=== PATIENT | female | born 2000 | race Caucasian/White ===

== ENCOUNTER → 2020-01-13 15:12 | Outpatient (BNVA) | payer SELFPAY | PROVIDERS: Family Provider Electrodiagnostic Medicine; PCP Nurse Practitioner Family; Visit Provider Nurse Practitioner | DX: Z71.1 Person with feared health complaint in whom no diagnosis is made (principal); N89.8 Other specified noninflammatory disorders of vagina | CPT/HCPCS: 87491; 87591; 87661 ==

== ENCOUNTER 2021-05-09 12:38 | Emergency (ER) | payer MEDICAID, SELFPAY ==
--- NOTE | 2021-05-09 12:52 | US_ITS ---
WS: [id number] Obstetrical ultrasound, limited. HISTORY: Cramping. Comparison: None. Single intrauterine gestation is identified with heart rate 1 53 bpm. Cervix is closed at 4.2 cm. Kj centa is developing posterior. Normal amount of amniotic fluid. Biometry consistent with a gestation of 13 weeks and 6 days. US/US OB limited [id number] IMPRESSION: 1. Normal cardiac activity. 2. Normal amniotic fluid.
[2021-05-09 13:02] VITALS: BP 121/75; PULSE 79; RESP 18; TEMP 36.9; O2SAT 97; BMI 28.1
[2021-05-09 13:31] LABS: Add Urine Microscopic? NO; Charge for UA Resulting for Rev
[2021-05-09 13:37] LABS: Bilirubin Urine Neg (Negative); Blood Urine Neg (Negative); Glucose Urine UA Norm (Normal); Ketones Urine 1+ (Negative); Leukocyte Esterase Urine Negative (Negative); Nitrate Urine Negative (Negative); Protein Urine Neg (Negative); Specific Gravity, Urine 1.015 (1.005-1.030); Urine Appearance Clear (CLEAR); Urine Color Yellow (Yellow); Urobilinogen Urine Norm (Negative); pH Urine 7 (5-7)
--- NOTE | 2021-05-09 14:10 | W.ED.ABDPA2 ---
HPI - Abdominal Pain General: Chief Complaint: Abdominal Pain Stated Complaint: cramping, 12 weeks , H/A Time Seen by Provider: 05/09/21 14:03 History of Present Illness: HPI narrative: 20-year-old female presents emergency room she is approximately 12 weeks gestation. Overnight she had some generalized cramping abdominal pain nausea and vomiting she denies any vaginal discharge or bleeding no dysuria urgency or frequency. She usually sees an calender inspector in [place]. She has prior of prior confirmed intrauterine . She is not been taking anything for nausea. MD elicited complaint: other (pelvic cramping.) Onset (ago): hour(s) Pain Consistency: intermittent Location: Pelvis Severity: moderate Quality: cramping Radiation: none Exacerbating factors: nothing Relieving factors: nothing Associated Symptoms: Reports GI cramping; Denies anorexia, belching, bloating, change in bowel habits, change in stool character, chills, coffee ground emesis, constipation, diarrhea, dyspepsia, dysuria, excessive flatus, fever(s), heartburn, hematochezia, hematuria, hematemesis, fecal incontinence, loose stools, melena, nausea, poor appetite and vomiting Review of Systems Const: Denies: fever(s) or chills ENMT: Denies: throat pain, ear or mastoid pain, nasal discharge or nasal congestion Card: Denies: chest pain, edema, dyspnea on exertion or orthopnea Resp: Denies: dyspnea, productive cough or non-productive cough GI: Reports: GI cramping; Denies: nausea, vomiting, hematemesis, coffee ground emesis, heartburn, diarrhea, constipation, bloating, belching, excessive flatus, fecal incontinence, change in bowel habits, change in stool character, hematochezia or melena : Denies: dysuria or hematuria Skin/Breast: Denies: rash or pruritus PFSH ED PFSH: Social History Smoking and tobacco status: former smoker Additional social history: - Tobacco use: Alcohol use: Drug use: Physical Exam Const: COMMON NORMALS: no acute distress GENERAL APPEARANCE: cooperative and comfortable ORIENTATION/CONSCIOUSNESS: Yes awake, Yes oriented to person, Yes oriented to place and Yes oriented to time HENMT: COMMON NORMALS: normocephalic, atraumatic, hearing grossly normal bilaterally and external ears normal HEAD & SCALP: normocephalic and atraumatic EXTERNAL EAR: Yes external ears normal Neck/C-Spine: COMMON NORMALS: no JVD Resp: COMMON NORMALS: normal respiratory effort, No retractions, No use of accessory muscles and clear to auscultation bilaterally AUSCULTATION: clear to auscultation bilaterally Cardio: COMMON NORMALS: no JVD, regular rate, regular rhythm and No murmurs present (Cardio) RATE: regular rate RHYTHM: regular rhythm GI: COMMON NORMALS: Soft to palpation and No hepatosplenomegaly present AUSCULTATION: Yes normoactive bowel sounds PALPATION: Yes Soft to palpation, No Tenderness to palpation present (GI), No Guarding due to palpation present (GI) and Yes No hepatosplenomegaly present Extremity: COMMON NORMALS: normal to inspection, capillary refill normal, no clubbing, cyanosis or edema, no calf tenderness and no pedal edema Neuro: SENSORIUM/ORIENTATION: Yes oriented to person, Yes oriented to place and Yes oriented to time Skin: COMMON NORMALS: no rashes or lesions noted GENERAL SKIN EXAM: no rashes or lesions noted Course Vital Signs: Vital signs: Vital Signs Temperature 98.4 F 05/09/21 13:02 Pulse Rate 79 05/09/21 13:02 Respiratory Rate 18 05/09/21 13:02 Blood Pressure 121/75 05/09/21 13:02 Pulse Oximetry 97 05/09/21 13:02 MDM - Abdominal Pain MDM Narrative: Medical decision making narrative: Her pelvic ultrasound showed intrauterine with good cardiac activity. She is feeling better after the fluids. We will start her on some promethazine to use as needed. Encourage her to follow-up with her primary care doctor please make contact with him within the week advance diet slowly she still feeling a little bit nauseous we will go ahead and give her a note for work for couple of days as well. Return if she has further problems. Lab Data: Labs: Lab Results 05/09/21 05/09/21 05/09/21 Range/Units 13:26 14:30 14:30 WBC 8.6 (4.5-13.0) 10^3/ uL RBC 3.86 L (4.1-5.3) 10^6/u L Hgb 12.5 (11.5-15.3) g/dL Hct 33.6 L (37.0-47.0) % MCV 87.0 (81-99) fL MCH 32.4 (28.0-34.0) pg MCHC 37.2 H (30.0-36.0) g/dL RDW 11.9 L (12.1-15.1) % Plt Count 236 (130-400) 10^3/c mm MPV 10.0 (7.4-10.4) fL Neut % (Auto) 79.3 % Lymph % (Auto) 15.3 % [place] % (Auto) 4.4 % Eos % (Auto) 0.4 % Baso % (Auto) 0.4 % Neut # (Auto) 6.78 (1.8-8.0) 10^3/u L Lymph # (Auto) 1.3 L (1.5-6.5) 10^3/u L [place] # (Auto) 0.4 (0.2-0.9) 10^3/u L Eos # (Auto) 0.0 (0.0-0.8) 10^3/u L Baso # (Auto) 0.0 (0.0-0.1) 10^3/u L Nucleated RBC % (a uto) 0 % Nucleated RBCs # 0.0 /100WBC Sodium 131 L (136-145) mmol/L Potassium 3.5 (3.5-5.1) mmol/L Chloride 97 L (98-107) mmol/L Carbon Dioxide 22 (22-29) mmol/L Anion Gap 15.5 (5-19) BUN 5 L (6-20) mg/dL Creatinine 0.4 L (0.5-0.9) mg/dL GFR Calculation 203.5 H (90-130) mL/min Glucose 103 (65-115) mg/dL Calculated Osmolal ity 270 L (285-295) mOsm/k g Calcium 9.0 (8.5-10.5) mg/dL Total Bilirubin 0.5 (0.15-1.2) mg/dL AST 14 (0-32) U/L ALT 12 (0-33) U/L Alkaline Phosphata se 51 (35-105) IU/L Total Protein 6.8 (6.6-8.7) g/dL Albumin 4.2 (3.5-5.2) g/dL Globulin 2.6 (1.3-4.6) g/dL Ser , [place]adip [place]Qnt 05973.00 mIU/mL Urine Color Yellow (Yellow) Urine Appearance Clear (CLEAR) Urine pH 7 (5-7) Ur Specific Gravit y 1.015 (1.005-1.030) Urine Protein Neg (Negative) Urine Glucose (UA) Norm (Normal) Urine Ketones 1+ H (Negative) Urine Blood Neg (Negative) Urine Nitrate Negative (Negative) Urine Bilirubin Neg (Negative) Urine Urobilinogen Norm (Negative) mg/dL Ur Leukocyte [place] ase Negative (Negative) Blood Type Rho(D) Type 05/09/21 Range/Units 15:13 WBC (4.5-13.0) 10^3/ uL RBC (4.1-5.3) 10^6/u L Hgb (11.5-15.3) g/dL Hct (37.0-47.0) % MCV (81-99) fL MCH (28.0-34.0) pg MCHC (30.0-36.0) g/dL RDW (12.1-15.1) % Plt Count (130-400) 10^3/c mm MPV (7.4-10.4) fL Neut % (Auto) % Lymph % (Auto) % [place] % (Auto) % Eos % (Auto) % Baso % (Auto) % Neut # (Auto) (1.8-8.0) 10^3/u L Lymph # (Auto) (1.5-6.5) 10^3/u L [place] # (Auto) (0.2-0.9) 10^3/u L Eos # (Auto) (0.0-0.8) 10^3/u L Baso # (Auto) (0.0-0.1) 10^3/u L Nucleated RBC % (a uto) % Nucleated RBCs # /100WBC Sodium (136-145) mmol/L Potassium (3.5-5.1) mmol/L Chloride (98-107) mmol/L Carbon Dioxide (22-29) mmol/L Anion Gap (5-19) BUN (6-20) mg/dL Creatinine (0.5-0.9) mg/dL GFR Calculation (90-130) mL/min Glucose (65-115) mg/dL Calculated Osmolal ity (285-295) mOsm/k g Calcium (8.5-10.5) mg/dL Total Bilirubin (0.15-1.2) mg/dL AST (0-32) U/L ALT (0-33) U/L Alkaline Phosphata se (35-105) IU/L Total Protein (6.6-8.7) g/dL Albumin (3.5-5.2) g/dL Globulin (1.3-4.6) g/dL Ser , Pradip i-Qnt mIU/mL Urine Color (Yellow) Urine Appearance (CLEAR) Urine pH (5-7) Ur Specific Gravit y (1.005-1.030) Urine Protein (Negative) Urine Glucose (UA) (Normal) Urine Ketones (Negative) Urine Blood (Negative) Urine Nitrate (Negative) Urine Bilirubin (Negative) Urine Urobilinogen (Negative) mg/dL Ur Leukocyte [place] ase (Negative) Blood Type A Positive Rho(D) Type Positive / 4+ Discharge Plan Discharge Patient Disposition: Home Clinical Impression: Discomfort during , Nausea & vomiting Condition: Stable Prescriptions: New promethazine 12.5 mg tablet 12.5 mg PO Q6H PRN (Reason: nausea and vomiting) Qty: 20 RF: 0 No Action citalopram 10 mg tablet 10 mg PO DAILY RF: 0 azithromycin 250 mg tablet See Rx Instructions PO .COMPLEX Qty: 6 RF: 0 Discharge Orders: Discharge ED (Routine); Ordered 05/09/21 Ordered By: Jagdish Agiular Referrals: Brice Perdomo DO [Primary Care Provider] - Discharge Diet: Usual diet Discharge Activity: Resume usual activity Patient Instructions: Opioid Safety Coding Level of Care Code ED Neurological Physiotherapist for Chg Fwd Exam Comprehensive
[2021-05-09] MEDS: sodium chloride 0.9% 1,000 ML 999 ML IV (14:39)
[2021-05-09] MEDS: promethazine 25 mg/mL SDV 1 mL IM (14:44)
[2021-05-09 15:08] LABS: Basophils % 0.4 %; Eosinophils % 0.4 %; Hematocrit 33.6 % (37.0-47.0); Hemoglobin 12.5 g/dL (11.5-15.3); Lymphocytes # 1.3 10^3/uL (1.5-6.5); Lymphocytes % 15.3 %; Mean Corpuscular HGB Conc 37.2 g/dL (30.0-36.0); Mean Corpuscular Hemoglobin 32.4 pg (28.0-34.0); Monocytes # 0.4 10^3/uL (0.2-0.9); Monocytes % 4.4 %; Neutrophils # 6.78 10^3/uL (1.8-8.0); Neutrophils % 79.3 %; Nucleated Red Blood Cells % 0 %; Platelet Count 236 10^3/cmm (130-400); Red Blood Count 3.86 10^6/uL (4.1-5.3); Red Cell Distribution Width 11.9 % (12.1-15.1); White Blood Count 8.6 10^3/uL (4.5-13.0)
[2021-05-09 15:42] LABS: Alanine Aminotransferase 12 U/L (0-33); Albumin Level 4.2 g/dL (3.5-5.2); Alkaline Phosphatase 51 IU/L (35-105); Anion Gap 15.5 (5-19); Aspartate Amino Transferase 14 U/L (0-32); Blood Urea Nitrogen 5 mg/dL (6-20); Carbon Dioxide 22 mmol/L (22-29); Chloride 97 mmol/L (98-107); Globulin 2.6 g/dL (1.3-4.6); Glomerular Filtration Rate 203.5 mL/min (90-130); Glucose 103 mg/dL (65-115); Osmolality Calculated 270 mOsm/kg (285-295); Potassium 3.5 mmol/L (3.5-5.1); Sodium 131 mmol/L (136-145); Total Bilirubin 0.5 mg/dL (0.15-1.2); Total Protein 6.8 g/dL (6.6-8.7)
[2021-05-09 16:11] VITALS: BP 114/59; PULSE 73; RESP 18; O2SAT 100
== END 2021-05-09 16:11 | disposition home or self-care (01) ==
PROVIDERS: Physician Assistant; Emergency Provider Family Medicine; PCP Electrodiagnostic Medicine
DX: O26.891 Other specified pregnancy related conditions, first trimester (principal); R10.9 Unspecified abdominal pain; R11.2 Nausea with vomiting, unspecified; Z3A.12 12 weeks gestation of pregnancy; Z87.891 Personal history of nicotine dependence
CPT/HCPCS: 76815; 80053; 81003; 84702; 85025; 86900; 96360; 96372; 99283; J2550; J7030

== ENCOUNTER 2023-09-19 06:30 | Emergency (ER) | payer MEDICAID, SELFPAY ==
[2023-09-19 06:40] VITALS: BP 112/71; PULSE 120; RESP 20; TEMP 37; O2SAT 95; BMI 28.1
[2023-09-19 06:43] VITALS: PULSE 121; RESP 16; O2SAT 98
--- NOTE | 2023-09-19 07:20 | W.ED.GENADLT ---
HPI - General Adult General: Chief complaint: General Medical Stated complaint: breast pain, nursing mom Time Seen by Provider: 09/19/23 07:07 Source: patient Mode of arrival: ambulatory History of Present Illness: 20-year-old female presents emergency room complaining nausea vomiting began overnight. She breast-feeds her 2-year-old child states she breast-feeds about 4 times at night. She thought she had a clogged milk duct. Her left breast overnight felt tender. She also noticed generalized myalgia with persistent nausea and vomiting to the night no fever no cough no diarrhea Onset (ago): hour(s) Relieving factors: none Exacerbating factors: none Associated symptoms: Reports decreased appetite, malaise, nausea and vomiting; Deny chest pain, cough, diaphoresis, dyspnea, fevers/chills, headache(s), rash, palpitations, seizures, short of breath, syncope or weakness Treatments prior to arrival: none Review of Systems Const: Reports: malaise; Denies: fever(s), chills or diaphoresis Card: Denies: chest pain, palpitations or syncope Resp: Denies: dyspnea GI: Reports: nausea and vomiting; Denies: abdominal pain : Denies: flank pain, dysuria, urinary frequency or urinary urgency Musc: Denies: neck pain or back pain Skin/Breast: Denies: rash Neuro: Denies: headache(s) PFSH ED PFSH: Social History Smoking and tobacco/nicotine status: former use of tobacco/nicotine Additional social history: - Tobacco use: Alcohol use: Drug use: Physical Exam Const: GENERAL APPEARANCE: cooperative and comfortable ORIENTATION/CONSCIOUSNESS: Yes awake, Yes oriented to person, Yes oriented to place and Yes oriented to time HENMT: COMMON NORMALS: normocephalic, atraumatic and hearing grossly normal bilaterally HEAD & SCALP: normocephalic and atraumatic Chest: COMMONS NORMALS: normal palpation of the breasts (Left breast) BREAST/AXILLA PALPATION: Yes normal palpation of the axillae (Left) and Yes normal palpation of the breasts (Left breast) NIPPLE/AREOLA: Yes nipples/areola normal (Left) Resp: COMMON NORMALS: normal respiratory effort, No retractions, No use of accessory muscles and clear to auscultation bilaterally AUSCULTATION: clear to auscultation bilaterally Cardio: COMMON NORMALS: regular rate, regular rhythm and No murmurs present (Cardio) RATE: regular rate RHYTHM: regular rhythm GI: COMMON NORMALS: Soft to palpation and No hepatosplenomegaly present AUSCULTATION: Yes normoactive bowel sounds PALPATION: Yes Soft to palpation, No Tenderness to palpation present (GI), No Guarding due to palpation present (GI) and Yes No hepatosplenomegaly present Extremity: COMMON NORMALS: normal to inspection, capillary refill normal, no clubbing, cyanosis or edema, no calf tenderness and no pedal edema Neuro: SENSORIUM/ORIENTATION: Yes oriented to person, Yes oriented to place and Yes oriented to time Skin: COMMON NORMALS: no rashes or lesions noted GENERAL SKIN EXAM: no rashes or lesions noted Course Vital Signs: Vital signs: Vital Signs Temperature 98.6 F 09/19/23 06:40 Pulse Rate 100 09/19/23 09:03 Respiratory Rate 16 09/19/23 06:43 Blood Pressure 124/66 09/19/23 09:03 Pulse Oximetry 97 09/19/23 09:03 Oxygen Delivery Me thod Room Air 09/19/23 08:13 [facility] - General Adult Medical Decision Making Labs and imaging reviewed. No acute abdominal findings on exam. Think she does have mild gastroenteritis. We will go ahead and discharge home clear liquid diet 24 to 48 hours antiemetics as needed follow-up if not improving Medical Records I reviewed the patient's medical records. Lab Data I reviewed the patient's lab results. 09/19/23 06:46 09/19/23 06:46 Laboratory Results WBC 14.71 10^3/uL (3.29-11.43) H 09/19/23 06:46 RBC 4.11 10^6/uL (3.85-5.65) 09/19/23 06:46 Hgb 12.90 g/dL (11.27-16.99) 09/19/23 06:46 Hct 37.3 % (36-47) 09/19/23 06:46 MCV 90.8 fl (85-98) 09/19/23 06:46 MCH 31.4 pg (27-33) 09/19/23 06:46 MCHC 34.6 g/dL (30-55) 09/19/23 06:46 RDW 12.0 % (12.1-15.1) L 09/19/23 06:46 Plt Count 213 10^3/cmm (157-399) 09/19/23 06:46 MPV 10.1 fL (7.4-10.4) 09/19/23 06:46 Neut % (Auto) 88.8 % 09/19/23 06:46 Lymph % (Auto) 3.4 % 09/19/23 06:46 [place] % (Auto) 7.1 % 09/19/23 06:46 Eos % (Auto) 0.1 % 09/19/23 06:46 Baso % (Auto) 0.3 % 09/19/23 06:46 Neut # (Auto) 13.08 10^3/uL (1.8-7.7) H 09/19/23 06:46 Lymph # (Auto) 0.5 10^3/uL (0.8-4.8) L 09/19/23 06:46 [place] # (Auto) 1.0 10^3/uL (0.2-0.9) H 09/19/23 06:46 Eos # (Auto) 0.0 10^3/uL (0.0-0.8) 09/19/23 06:46 Baso # (Auto) 0.0 10^3/uL (0.0-0.1) 09/19/23 06:46 Nucleated RBC % (auto) 0 % 09/19/23 06:46 Nucleated RBCs # 0.0 /100WBC 09/19/23 06:46 Sodium 139 mmol/L (136-145) 09/19/23 06:46 Potassium 3.9 mmol/L (3.5-5.1) 09/19/23 06:46 Chloride 104 mmol/L (98-107) 09/19/23 06:46 Carbon Dioxide 23 mmol/L (22-29) 09/19/23 06:46 Anion Gap 15.9 (5-19) 09/19/23 06:46 BUN 12 mg/dL (6-20) 09/19/23 06:46 Creatinine 0.6 mg/dL (0.5-0.9) 09/19/23 06:46 GFR Calculation 125.0 mL/min (90-130) 09/19/23 06:46 Glucose 125 mg/dL (65-115) H 09/19/23 06:46 Calculated Osmolality 289 mOsm/kg (285-295) 09/19/23 06:46 Calcium 9.3 mg/dL (8.5-10.5) 09/19/23 06:46 Total Bilirubin 0.6 mg/dL (0.15-1.2) 09/19/23 06:46 AST 35 U/L (0-32) H 09/19/23 06:46 ALT 38 U/L (0-33) H 09/19/23 06:46 Alkaline Phosphatase 84 U/L (35-105) 09/19/23 06:46 Total Protein 7.5 g/dL (6.6-8.7) 09/19/23 06:46 Albumin 4.7 g/dL (3.5-5.2) 09/19/23 06:46 Globulin 2.8 g/dL (1.3-4.6) 09/19/23 06:46 Urine Color Yellow (Yellow) 09/19/23 07:25 Urine Appearance Clear (CLEAR) 09/19/23 07:25 Urine pH 8 (5-7) H 09/19/23 07:25 Ur Specific [place] 1.005 (1.005-1.030) 09/19/23 07:25 Urine Protein Neg (Negative) 09/19/23 07:25 Urine Glucose (UA) Norm (Normal) 09/19/23 07:25 Urine Ketones Negative (Negative) 09/19/23 07:25 Urine Blood Neg (Negative) 09/19/23 07:25 Urine Nitrate Negative (Negative) 09/19/23 07:25 Urine Bilirubin Neg (Negative) 09/19/23 07:25 Urine Urobilinogen Norm mg/dL (Negative) 09/19/23 07:25 Ur Leukocyte Esterase Negative (Negative) 09/19/23 07:25 Coronavirus 229E (PCR) Not detected (NOT DETECT) 09/19/23 07:25 SARS-CoV-2 (PCR) Not detected (NOT DETECT) 09/19/23 07:25 No radiology studies performed this visit Discharge Plan Discharge Patient Disposition: Home Clinical Impression: Gastroenteritis Condition: Stable Prescriptions: New promethazine 25 mg tablet 25 mg PO Q6H PRN (Reason: nausea and vomiting) Qty: 20 0RF No Action citalopram 20 mg tablet 20 mg PO QAM ibuprofen 200 mg Tablet 400 mg PO Q6H PRN (Reason: Pain) hydroxyzine HCl 25 mg tablet 25 mg PO Q6H PRN (Reason: Anxiety) etonogestrel-ethinyl estradiol [EluRyng] 0.12-0.015 mg/24 hr ring See Rx Instructions .ROUTE .COMPLEX Rx Instructions: INSERT 1 RING VAGINALLY ONCE A MONTH - LEAVE IN PLACE FOR 3 WEEKS, THEN REMOVE FOR 1 WEEK Discharge Orders: Discharge ED (Routine); Ordered 09/19/23 Ordered By: Jagdish Aguilar Referrals: Roosevelt Ya MD [Primary Care Provider] - Discharge Diet: Clear Liquid Discharge Activity: Increase activity as tolerated Patient Instructions: Opioid Safety, Pain Management Coding Level of Care Code ED Superintendent Communications for Malgorzata Moreno
[2023-09-19] MEDS: ondansetron 2 mg/ML SDV 2 mL 4 MG IVP (07:24)
[2023-09-19] MEDS: sodium chloride 0.9% 1,000 ML 999 ML IV (07:24)
[2023-09-19 07:31] LABS: Add Urine Microscopic? NO; Charge for UA Resulting for Rev
[2023-09-19 07:32] LABS: Basophils % 0.3 %; Eosinophils % 0.1 %; Hematocrit 37.3 % (36-47); Lymphocytes # 0.5 10^3/uL (0.8-4.8); Lymphocytes % 3.4 %; Mean Corpuscular HGB Conc 34.6 g/dL (30-55); Mean Corpuscular Hemoglobin 31.4 pg (27-33); Mean Corpuscular Volume 90.8 fl (85-98); Mean Platelet Volume 10.1 fL (7.4-10.4); Monocytes % 7.1 %; Neutrophils # 13.08 10^3/uL (1.8-7.7); Neutrophils % 88.8 %; Nucleated Red Blood Cells % 0 %; Platelet Count 213 10^3/cmm (157-399); Red Blood Count 4.11 10^6/uL (3.85-5.65); White Blood Count 14.71 10^3/uL (3.29-11.43)
[2023-09-19 07:50] LABS: Bilirubin Urine Neg (Negative); Blood Urine Neg (Negative); Glucose Urine UA Norm (Normal); Ketones Urine Negative (Negative); Leukocyte Esterase Urine Negative (Negative); Nitrate Urine Negative (Negative); Protein Urine Neg (Negative); Specific Gravity, Urine 1.005 (1.005-1.030); Urine Appearance Clear (CLEAR); Urine Color Yellow (Yellow); Urobilinogen Urine Norm (Negative); pH Urine 8 (5-7)
[2023-09-19 07:51] LABS: Alanine Aminotransferase 38 U/L (0-33); Albumin Level 4.7 g/dL (3.5-5.2); Alkaline Phosphatase 84 U/L (35-105); Anion Gap 15.9 (5-19); Aspartate Amino Transferase 35 U/L (0-32); Blood Urea Nitrogen 12 mg/dL (6-20); Calcium 9.3 mg/dL (8.5-10.5); Carbon Dioxide 23 mmol/L (22-29); Chloride 104 mmol/L (98-107); Globulin 2.8 g/dL (1.3-4.6); Glucose 125 mg/dL (65-115); Osmolality Calculated 289 mOsm/kg (285-295); Potassium 3.9 mmol/L (3.5-5.1); Sodium 139 mmol/L (136-145); Total Bilirubin 0.6 mg/dL (0.15-1.2); Total Protein 7.5 g/dL (6.6-8.7)
[2023-09-19 08:13] VITALS: PULSE 97; O2SAT 95
[2023-09-19 09:03] VITALS: BP 124/66; PULSE 100; O2SAT 97
[2023-09-19 09:14] LABS: Adenovirus Not Detected (NOT DETECT); Chlamydia Pneumoniae Not Detected (NOT DETECT); Coronavirus 229E,HKU1,NL63,OC4 Not Detected (NOT DETECT); Human Metapneumovirus Not Detected (NOT DETECT); Human Rhinovirus/Enterovirus Not Detected (NOT DETECT); Influenza A Not Detected (NOT DETECT); Influenza A H1 Not Detected (NOT DETECT); Influenza A H1-2009 Not Detected (NOT DETECT); Influenza A H3 Not Detected (NOT DETECT); Influenza B Not Detected (NOT DETECT); Mycoplasma Pneumoniae Not Detected (NOT DETECT); Parainfluenza Virus Type 1 Not Detected (NOT DETECT); Parainfluenza Virus Type 2 Not Detected (NOT DETECT); Parainfluenza Virus Type 3 Not Detected (NOT DETECT); Parainfluenza Virus Type 4 Not Detected (NOT DETECT); Respiratory Syncytial Virus A Not Detected (NOT DETECT); Respiratory Syncytial Virus B Not Detected (NOT DETECT); SARS-COV-2 Not Detected (NOT DETECT)
== END 2023-09-19 09:04 | disposition home or self-care (01) ==
PROVIDERS: Emergency Provider Family Medicine; PCP Family Medicine
DX: K52.9 Noninfective gastroenteritis and colitis, unspecified (principal); Z11.52 Encounter for screening for COVID-19; Z87.891 Personal history of nicotine dependence
CPT/HCPCS: 80053; 81003; 85025; 87635; 96374; 99284; J2405; J7030

== ENCOUNTER 2024-03-02 08:11 | Outpatient (CLI) | payer MEDICAID, SELFPAY ==
--- NOTE | 2024-03-02 08:18 | MR_ITS ---
WS: [id number] MRI RIGHT SHOULDER HISTORY: PAIN IN R SHOULDER COMPARISON: None available. TECHNIQUE: Multiplanar sequences of the shoulder joint are submitted. No significant AC joint arthritis. No subacromial impingement. No fractures or marrow edema. Biceps t endon is in the bicipital groove. No os acromion. Normal position of the humeral head with respect to the glenoid. No rotator cuff muscle atrophy or ed kary. No subacromial or subdeltoid bursal fluid. Mild surface fraying of the superior labrum. Cannot c onfirm tear. IMPRESSION: 1. No rotator cuff tendon tear. No joint effusion. 2. No muscle atrophy or edema. 3. Very mild fraying involving the superior labrum. Cannot confirm tear.
== END 2024-03-02 08:12 | disposition home or self-care (01) ==
LOC: RAD 08:11
PROVIDERS: PCP Family Medicine; Visit Provider Family Medicine
DX: M25.511 Pain in right shoulder (principal)
CPT/HCPCS: 73221